=== PATIENT | male | born 1990 | race African-American/Black ===

== ENCOUNTER 2017-10-23 19:20 | Emergency (ER) | payer OTHER, SELFPAY ==
[2017-10-23] MEDS ORDERED: IPRATROPIUM 0.5MG/ALBUTEROL 2.5MG INH SOL UD 3ML (DUONEB)(J7620) As Ordered (19:27)
[2017-10-23] MEDS: IPRATROPIUM 0.5MG/ALBUTEROL 2.5MG INH SOL UD 3ML (DUONEB)(J7620) NEB (19:43)
[2017-10-23 21:25] LABS: BASO % 0.1 % (0.0-1.0); EOS # 0.1 10^3/uL (0.0-0.50); EOS % 1.4 % (0.0-3.0); HEMATOCRIT 45.6 % (42.0-52.0); HEMOGLOBIN 15.6 g/dl (14.0-18.0); IMMATURE GRANULOCYTE % 0.3 % (0-3.0); LYMPH # 1.5 10^3/uL (1.5-6.5); LYMPH % 20.4 % (24.0-44.0); MEAN CORPUSCULAR HEMOGLOBIN 28.6 pg (27.0-33.0); MEAN CORPUSCULAR HGB CONC 34.2 g/dl (32.0-36.5); MEAN CORPUSCULAR VOLUME 83.5 fl (80.0-96.0); MONO # 0.4 10^3/uL (0.0-0.8); MONO % 5.8 % (0.0-5.0); NEUTROPHILS # 5.1 10^3/uL (1.8-7.7); PLATELET COUNT, AUTOMATED 199 10^3/uL (150-450); RED BLOOD COUNT 5.46 10^6/uL (4.30-6.10); RED CELL DISTRIBUTION WIDTH 12.2 % (11.5-14.5); WHITE BLOOD COUNT 7.1 10^3/uL (4.0-10.0)
[2017-10-23 21:40] LABS: D-DIMER QUANT 464.1 ng/ml (<500)
[2017-10-23 21:45] LABS: ANION GAP 5 MEQ/L (8-16); BLOOD UREA NITROGEN 6 MG/DL (7-18); CALCIUM LEVEL 8.9 MG/DL (8.5-10.1); CARBON DIOXIDE LEVEL 30 MEQ/L (21-32); CHLORIDE LEVEL 105 MEQ/L (98-107); CK-MB VALUE MASS 2.3 NG/ML (0.0-3.6); CPK CREATINE PHOSPHOKINASE 427 U/L (39-308); CREATININE FOR GFR 1.07 MG/DL (0.70-1.30); GLOMERULAR FILTRATION RATE > 60.0 (>60); GLUCOSE, FASTING 94 MG/DL (70-100); MB/CK RELATIVE INDEX 0.53 (< OR =4); POTASSIUM SERUM 3.9 MEQ/L (3.5-5.1); SODIUM LEVEL 140 MEQ/L (136-145); TROPONIN I < 0.02 NG/ML (< 0.10)
[2017-10-23 21:55] LABS: INFLUENZA A AMPLIFICATION POSITIVE (NEGATIVE); INFLUENZA B AMPLIFICATION NEGATIVE (NEGATIVE)
[2017-10-23] MEDS ORDERED: ISOVUE-370 76% 100ML VIAL (Q9967) As Ordered (22:00)
[2017-10-23] MEDS: OSELTAMIVIR PHOSPHATE 75 MG CAP (TAMIFLU) PO (23:10)
[2017-10-23] MEDS: ACETAMINOPHEN 325 MG TAB PO (23:10)
== END 2017-10-23 23:23 | disposition home or self-care (01) ==
LOC: M ED 19:20
DX: J09.X2 Influenza due to identified novel influenza A virus with other respiratory manifestations (principal); R91.1 Solitary pulmonary nodule
CPT/HCPCS: Q9967

== ENCOUNTER → 2018-11-25 | Outpatient (CLI) | payer OTHER ==
[~2018-11-25] MED LIST: OSEL75CA PO; VENTAER IN
--- NOTE | 2018-11-27 13:56 | SLEEPMSLT ---
DATE OF PROCEDURE: 11/25/2018 ORDERED BY: Lilly Peralta Nocturnal polysomnography was performed for evaluation of sleep physiology. 7 hours and 53 minutes of data were reviewed. There were 430 minutes of sleep identified. Sleep latency was mildly prolonged at 20.5 minutes. Rapid eye movement (REM) latency was short at 72 minutes. Sleep architecture was fair with 3 REM cycles noted. Overall sleep efficiency was 92%. The patient's electrocardiogram showed a sinus rhythm with an average heart rate of 72 beats per minute. Rate ranged 60-95. Electroencephalogram (EEG) showed normal waveforms for awake and sleep. There were only 2 respiratory events identified of 10 seconds in duration or greater for an apnea-hypopnea index of 0.3. Arousals from respiratory events and arousals from snoring were included once per hour. There were no significant oxygen desaturations below 90%. There was minimal activity in the limb leads. Limb movement arousal index was 4.2. Snoring was noted over the entire study. Following nocturnal polysomnography, multiple sleep latency testing was performed. Five nap opportunities were offered at 2 hour intervals. Sleep was seen on five out of five nap opportunities with a mean sleep latency of 2.4 minutes. No REM sleep was identified. IMPRESSION: Normal nocturnal polysomnography with snoring and pathologically short sleep latency with no sleep onset REM identified and mean sleep latency of 2.4 minutes.
== END ==
LOC: M SLEEP 19:35
PROVIDERS: ATTEND Nurse Practitioner Family
DX: R06.83 Snoring (principal)

== ENCOUNTER → 2018-12-05 | Outpatient (CLI) | payer OTHER ==
[~2018-12-05] MED LIST changes: +METHACHOLINE KIT (J7674) INH ONE
--- NOTE | 2018-12-05 11:03 | PFTRPT ---
Height: 65.00 Inches Weight: 180.00 Lbs BSA: 1.89 Diagnosis: R05 DATE OF STUDY: 12/05/2018 ORDERED BY: AVA Jeong INTERPRETATION: Study of excellent technical quality. Under protocol, methacholine was administered. At a dose of 2.5 mg or 13.875 CDUs, a 26% decline in the FEV1 was noted. PC of 1.21 is significant. Flow rates did return to baseline post bronchodilator administration. IMPRESSION: Positive methacholine challenge study. MTDD
== END ==
LOC: M CARPUL 10:19
PROVIDERS: ATTEND Nurse Practitioner Family
DX: R94.2 Abnormal results of pulmonary function studies (principal)
CPT/HCPCS: 94070; J7674

== ENCOUNTER 2020-03-12 11:12 | Emergency (ER) | payer OTHER ==
[~2020-03-12] VITALS: Ht 165.1 cm; Wt 81.6 kg
[~2020-03-12 11:12] MED LIST changes: -METHACHOLINE KIT (J7674) INH ONE
[2020-03-12] MEDS ORDERED: PRAZ2CAP PO (11:19)
[2020-03-12] MEDS ORDERED: AMOX500C PO (12:54)
[2020-03-12] MEDS ORDERED: AMOXICILLIN 500 MG CAP PO ONE (13:00)
[2020-03-12] MEDS ORDERED: IBUPROFEN 600MG TAB PO ONE (13:00)
[2020-03-12 13:24] VITALS: BP 124/69
== END 2020-03-12 13:25 | disposition home or self-care (01) ==
LOC: M ED 11:12
DX: H66.92 Otitis media, unspecified, left ear (principal)

== ENCOUNTER 2020-03-16 08:48 | Emergency (ER) | payer OTHER ==
[~2020-03-16] VITALS: Ht 165.1 cm; Wt 82.8 kg
[~2020-03-16 08:48] MED LIST changes: +AMOX500C PO; +PRAZ2CAP PO
[2020-03-16] MEDS ORDERED: CIPRODEX OTIC SUSP 7.5ML AS STA (09:12)
[2020-03-16] MEDS ORDERED: CIPRODEX OTIC (09:23)
[2020-03-16] MEDS ORDERED: AUGM875T28 PO (09:23)
[2020-03-16 10:01] VITALS: BP 125/66
[2020-04-21] MEDS ORDERED: LATU80TA PO (14:44)
[2020-04-21] MEDS ORDERED: PRAZ1CAP PO (14:44)
[2020-04-21] MEDS ORDERED: VENTAER INH (14:44)
== END 2020-03-16 10:07 | disposition home or self-care (01) ==
LOC: M ED 08:48
DX: H66.92 Otitis media, unspecified, left ear (principal); H60.92 Unspecified otitis externa, left ear; F17.200 Nicotine dependence, unspecified, uncomplicated

== ENCOUNTER → 2020-04-20 | Emergency (ER) | payer OTHER ==
[~2020-04-20] MED LIST changes: +AUGM875T28 PO; +CIPRODEX OTIC; +LATU80TA PO; +NICOTINE 14 MG/24 HR TRANSDERMAL As Ordered ONE; +PRAZ1CAP PO; +VENTAER INH
[2020-04-24 20:03] LABS: AMPHETAMINES LEVEL URINE NEGATIVE (NEGATIVE); BARBITURATES URINE NEGATIVE (NEGATIVE); BENZODIAZEPINES URINE NEGATIVE (NEGATIVE); CANNABINOIDS URINE NEGATIVE (NEGATIVE); COCAINE METABOLITE URINE NEGATIVE (NEGATIVE); METHADONE URINE NEGATIVE (NEGATIVE); OPIATES URINE NEGATIVE (NEGATIVE); PHENCYCLIDINE URINE NEGATIVE (NEGATIVE)
[2020-04-24 20:03] LABS: ACETAMINOPHEN LEVEL < 2.0 UG/ML (10.0-30.0); ALBUMIN 4.2 GM/DL (3.2-5.2); ALT/SGPT 48 U/L (12-78); BILIRUBIN,DIRECT 0.2 MG/DL (0.0-0.2); BILIRUBIN,TOTAL 0.7 MG/DL (0.2-1.0); BLOOD UREA NITROGEN 9 MG/DL (7-18); CALCIUM LEVEL 9.2 MG/DL (8.5-10.1); CARBON DIOXIDE LEVEL 26 MEQ/L (21-32); CHLORIDE LEVEL 107 MEQ/L (98-107); CREATININE FOR GFR 1.17 MG/DL (0.70-1.30); ETHYL ALCOHOL (ETHANOL) < 0.003 % (0.000-0.010); GLOMERULAR FILTRATION RATE > 60.0 (>60); GLUCOSE, FASTING 93 MG/DL (70-100); POTASSIUM SERUM 3.8 MEQ/L (3.5-5.1); SALICYLATE LEVEL < 1.7 MG/DL (5.0-30.0); SODIUM LEVEL 139 MEQ/L (136-145); TOTAL PROTEIN 8.2 GM/DL (6.4-8.2)
--- NOTE | 2020-05-13 11:26 | ECGEPIP ---
[facility] - ED Test Date: 2020-04-20 Pat Name: DEE KEITA Department: Room: - Gender: Male [employer]er: : [id number] Requested By: KEVIN ZAVALA Order Number: [id number] Reading MD: Jacinta Franklin Measurements Intervals [place] Rate: 45 P: -2 MI: 177 QRS: 52 QRSD: 88 T: 28 QT: 446 QTc: 390 Interpretive Statements SINUS BRADYCARDIA POSSIBLE RIGHT VENTRICULAR CONDUCTION DELAY ST ELEVATION, PROBABLY EARLY REPOLARIZATION BORDERLINE ECG SEE SCANNED DOWNTIME REPORT
[2020-05-31 08:11] LABS: HEMATOCRIT 48.2 % (42.0-52.0); HEMOGLOBIN 16.3 g/dl (13.5-17.5); MEAN CORPUSCULAR HEMOGLOBIN 28.5 pg (27.0-33.0); MEAN CORPUSCULAR HGB CONC 33.8 g/dl (32.0-36.5); MEAN CORPUSCULAR VOLUME 84.4 fl (80.0-96.0); PLATELET COUNT, AUTOMATED 235 10^3/uL (150-450); RED BLOOD COUNT 5.71 10^6/uL (4.30-6.10); WHITE BLOOD COUNT 6.2 10^3/uL (4.0-10.0)
== END | disposition other institution (70) ==
LOC: M ED 05:30
DX: R45.851 Suicidal ideations (principal); F32.9 Major depressive disorder, single episode, unspecified; R00.1 Bradycardia, unspecified; F51.4 Sleep terrors [night terrors]
CPT/HCPCS: 80048; 80076; 80307; 84443; 85027; 93005; 99285; G0480; U0002

== ENCOUNTER 2020-09-07 16:12 | Emergency (ER) | payer OTHER ==
[~2020-09-07] VITALS: Ht 165.1 cm; Wt 84.4 kg
[~2020-09-07 16:12] MED LIST changes: -NICOTINE 14 MG/24 HR TRANSDERMAL As Ordered ONE
[2020-09-07 16:13] VITALS: BP 160/99
--- NOTE | 2020-09-07 17:36 | REPVR ---
PROCEDURE INFORMATION: Exam: CT Head Without Contrast Exam date and time: 09/07/2020 5:18 PM Age: 30 years old Clinical indication: Injury or trauma; Fall; Blunt trauma (contusions or hematomas); Additional info: Head injury TECHNIQUE: Imaging protocol: Computed tomography of the head without contrast. Radiation optimization: All CT scans at this facility use at least one of these dose optimization techniques: automated exposure control; mA and/or kV adjustment per patient size (includes targeted exams where dose is matched to clinical indication); or iterative reconstruction. COMPARISON: No relevant prior studies available. FINDINGS: Brain: Unremarkable. No hemorrhage. No significant white matter disease. No edema. Cerebral ventricles: No ventriculomegaly. Bones/joints: Unremarkable. No acute fracture. Paranasal sinuses: Partial opacification of the right sphenoid sinus. No paranasal sinus air-fluid level. Mastoid air cells: Visualized mastoid air cells are well aerated. Soft tissues: Unremarkable. IMPRESSION: No intracranial abnormality. Electronically signed by: Ruiz Delaney On 09/07/2020 17:36:48 PM
--- NOTE | 2020-09-07 17:40 | REPVR ---
PROCEDURE INFORMATION: Exam: CT Cervical Spine Without Contrast Exam date and time: 09/07/2020 5:18 PM Age: 30 years old Clinical indication: Injury or trauma; Fall; Blunt trauma; Additional info: Head injury TECHNIQUE: Imaging protocol: Computed tomography images of the cervical spine without contrast. Radiation optimization: All CT scans at this facility use at least one of these dose optimization techniques: automated exposure control; mA and/or kV adjustment per patient size (includes targeted exams where dose is matched to clinical indication); or iterative reconstruction. COMPARISON: No relevant prior studies available. FINDINGS: Bones/joints: Congenital incomplete fusion of the posterior arch of C1. The intervertebral disc spaces and vertebral body heights are well maintained. The facet joints are intact. Bone density is normal. No fracture or subluxation. Discs/Spinal canal/Neural foramina: No bony spinal stenosis. Retropharyngeal space: Normal retropharyngeal soft tissues. Mastoid air cells: Tiny effusions within the inferior right mastoid air cells. Clear left mastoids. Lungs: Lung apices are clear. Soft tissues: Unremarkable. IMPRESSION: No fracture or subluxation. Electronically signed by: Ruiz Delaney On 09/07/2020 17:40:24 PM
== END 2020-09-07 18:24 | disposition home or self-care (01) ==
LOC: M ED 16:12
DX: S06.0X0A Concussion without loss of consciousness, initial encounter (principal); W22.09XA Striking against other stationary object, initial encounter; Y92.89 Other specified places as the place of occurrence of the external cause; Y93.89 Activity, other specified; Y99.1 Military activity; J45.909 Unspecified asthma, uncomplicated; F17.200 Nicotine dependence, unspecified, uncomplicated; Z79.899 Other long term (current) drug therapy

== ENCOUNTER → 2024-07-25 | Outpatient (REF) | payer OTHER ==
[~2024-07-25] MED LIST changes: +CIPR7.5D5 OTIC; -CIPRODEX OTIC; -LATU80TA PO; +LATU80TA2 PO
== END ==
LOC: M LAB REF 12:26
PROVIDERS: ATTEND Physician Assistant
DX: B34.9 Viral infection, unspecified (principal)

== ENCOUNTER 2024-10-31 11:33 | Emergency (ER) | payer OTHER ==
[~2024-10-31] VITALS: Ht 167.6 cm; Wt 88.3 kg
[2024-10-31 12:01] LABS: BASO % 0.4 % (0.0-1.0); EOS # 0.2 10^3/uL (0.0-0.5); EOS % 3.8 % (0.0-3.0); HEMATOCRIT 46.4 % (42.0-52.0); HEMOGLOBIN 15.8 g/dl (13.5-17.5); LYMPH % 43.9 % (24.0-44.0); MEAN CORPUSCULAR HEMOGLOBIN 28.7 pg (27.0-33.0); MEAN CORPUSCULAR HGB CONC 34.1 g/dl (32.0-36.5); MEAN CORPUSCULAR VOLUME 84.4 fl (80.0-96.0); MONO # 0.4 10^3/uL (0.0-0.8); MONO % 9.2 % (2.0-8.0); NEUTROPHILS # 1.9 10^3/uL (1.5-8.5); NEUTROPHILS % 42.7 % (36.0-66.0); PLATELET COUNT, AUTOMATED 245 10^3/uL (150-450); WHITE BLOOD COUNT 4.5 10^3/uL (4.0-10.0)
[2024-10-31 12:12] LABS: INR 0.97; PROTHROMBIN TIME 13.2 SECONDS (12.5-14.5)
[2024-10-31 12:30] LABS: LIPASE 40 U/L (12-53)
[2024-10-31 12:32] LABS: ALKALINE PHOSPHATASE 95 U/L (40-129); ALT/SGPT 40 U/L (7.0-40); AST/SGOT 26 U/L (<34); BILIRUBIN,DIRECT 0.2 MG/DL (<0.4); BILIRUBIN,TOTAL 0.6 MG/DL (0.3-1.2); BLOOD UREA NITROGEN 13 MG/DL (9-23); CALCIUM LEVEL 9.1 MG/DL (8.5-10.1); CARBON DIOXIDE LEVEL 27 MMOL/L (20-31); CHLORIDE LEVEL 104 MMOL/L (98-107); CK-MB VALUE MASS < 1.0 NG/ML (<3.6); CPK CREATINE PHOSPHOKINASE 461 U/L (46-171); GLOMERULAR FILTRATION RATE > 60.0 (>60); GLUCOSE, FASTING 93 MG/DL (60-100); MB/CK RELATIVE INDEX 0.21 (< OR =4); POTASSIUM SERUM 4.2 MMOL/L (3.5-5.1); SODIUM LEVEL 139 MMOL/L (136-145); TOTAL PROTEIN 7.6 G/DL (5.7-8.2)
[2024-10-31 13:26] LABS: INR 1.04; PARTIAL THROMBOPLASTIN TIME 25.7 SECONDS (24.8-34.2); PROTHROMBIN TIME 13.9 SECONDS (12.5-14.5)
[2024-10-31 14:30] VITALS: BP 119/73; O2SAT 99
[2024-10-31 14:46] VITALS: TEMP 98.6
== END 2024-10-31 14:47 | disposition home or self-care (01) ==
LOC: M ED 11:33
DX: R07.89 Other chest pain (principal); R00.1 Bradycardia, unspecified; F41.9 Anxiety disorder, unspecified; Z91.013 Allergy to seafood; Z79.51 Long term (current) use of inhaled steroids; Z79.899 Other long term (current) drug therapy

== ENCOUNTER → 2025-01-21 | Outpatient (REF) | payer OTHER | LOC: M LAB REF 11:56 | PROVIDERS: ATTEND Physician Assistant | DX: B34.9 Viral infection, unspecified (principal); J02.9 Acute pharyngitis, unspecified ==

== ENCOUNTER 2025-08-17 21:54 | Emergency (ER) | payer OTHER ==
[~2025-08-17] VITALS: Ht 167.6 cm; Wt 92.3 kg
[2025-08-17] MEDS: ACETAMINOPHEN 325 MG TAB PO ONE (23:57)
[2025-08-18] MEDS: IPRATROPIUM 0.5 MG/ALBUTEROL 2.5 MG INH SOL UD 3 ML NEB ONE (00:11)
[2025-08-18 00:23] LABS: BASO # 0.0 10^3/uL (0.0-0.2); BASO % 0.2 % (0.0-1.0); EOS # 0.1 10^3/uL (0.0-0.5); EOS % 1.6 % (0.0-3.0); LYMPH # 0.4 10^3/uL (1.5-5.0); LYMPH % 8.3 % (24.0-44.0); MONO # 0.5 10^3/uL (0.0-0.8); MONO % 10.8 % (2.0-8.0); NEUTROPHILS # 3.5 10^3/uL (1.5-8.5); NEUTROPHILS % 78.7 % (36.0-66.0); PLATELET COUNT, AUTOMATED 228 10^3/uL (150-450)
[2025-08-18 00:46] LABS: ALT/SGPT 51 U/L (7.0-40); AST/SGOT 35 U/L (<34); CALCIUM LEVEL 8.8 MG/DL (8.5-10.1); CARBON DIOXIDE LEVEL 28 MMOL/L (20-31); CHLORIDE LEVEL 103 MMOL/L (98-107); CREATININE FOR GFR 1.03 MG/DL (0.70-1.30); GLOMERULAR FILTRATION RATE > 90.0 (>60); POTASSIUM SERUM 3.6 MMOL/L (3.5-5.1); SODIUM LEVEL 140 MMOL/L (136-145)
[2025-08-18] MEDS ORDERED: PROT20TA11 PO (01:40)
[2025-08-18] MEDS ORDERED: FLUTISP (01:40)
[2025-08-18] MEDS ORDERED: BENZ200C70 PO (01:40)
[2025-08-18 02:00] VITALS: BP 130/63; TEMP 103.1
[2025-08-18] MEDS: IBUPROFEN 600 MG TAB PO ONE (02:14)
[2025-08-18 02:15] VITALS: O2SAT 86
== END 2025-08-18 02:15 | disposition home or self-care (01) ==
LOC: M ED 21:54
DX: J09.X2 Influenza due to identified novel influenza A virus with other respiratory manifestations (principal); J45.909 Unspecified asthma, uncomplicated; Z91.013 Allergy to seafood; Z79.51 Long term (current) use of inhaled steroids; Z79.899 Other long term (current) drug therapy